=== PATIENT | female | born 1950 | race Caucasian/White ===

== ENCOUNTER 2022-06-26 16:04 | Inpatient (IN) | payer MEDICARE ==
[~2022-06-26 16:04] MED LIST: Iopamidol 370 76% 100 ML VIAL ONE
[2022-06-26 16:43] LABS: #Basophils 0.1 10x3/uL (0.0-0.2); #Eosinphils 0.3 10x3/uL (0.0-0.5); #Monocytes 0.9 10x3/uL (0.0-1.1); #Neutrophils 6.9 10x3/uL (1.5-8.4); %Basophils 0.7 % (0.0-2.0); %Eosinophils 2.3 % (0.0-6.0); %Lymphocytes 25.4 % (18.0-47.0); %Monocytes 8.4 % (0.0-10.0); %Neutrophils 62.8 % (40.0-75.0); Hemoglobin 12.9 g/dL (12.0-15.5); Mean Corpuscular HGB CONC 32.9 g/dL (32.0-36.0); Mean Corpuscular Hemoglobin 31.6 pg (27.0-33.0); Mean Corpuscular Volume 96.1 fl (81.6-98.3); Mean Platelet Volume 9.9 fl (7.4-10.4); Platelet Count 275 10x3/uL (150-450); RBC Distribution Width 14.5 % (11.5-14.5); Red Blood Cell (RBC) Count 4.08 10x6/uL (3.90-5.03); White Blood Cell (WBC) Count 10.9 10x3/uL (3.5-10.5)
[2022-06-26 17:22] LABS: ALT (SGPT) 11 U/L (8-55); AST (SGOT) 14 U/L (5-34); Albumin 3.4 g/dL (3.4-4.8); Alkaline Phosphatase 74 U/L (40-110); Anion Gap 13 mmol/L (10-20); BUN (Urea Nitrogen) 22 mg/dL (9.8-20.1); Bilirubin, Total 0.6 mg/dL (0.2-1.2); CK (CPK) 28 U/L (29-168); Calc. Creatinine Clearance 0 mL/min (70-130); Calcium 9.1 mg/dL (7.8-10.44); Carbon Dioxide 22 mmol/L (23-31); Chloride 108 mmol/L (98-107); Estimated GFR 66; Globulin 3.5 g/dL (2.4-3.5); Glucose 180 mg/dL (83-110); Lipase 68 U/L (8-78); Magnesium 1.8 mg/dL (1.6-2.6); Potassium 4.1 mmol/L (3.5-5.1); Protein, Total 6.9 g/dL (5.8-8.1); Sodium 139 mmol/L (136-145)
[2022-06-26 18:09] LABS: Bilirubin Neg (Negative); Blood, Urine Negative (Negative); Clarity Clear (Clear); Glucose, Urine (Dipstick) 50 mg/dL (Negative); Ketone, Urine Negative (Negative); Leukocyte 500 (Negative); Nitrite Negative (Negative); Protein, Urine (Dipstick) 100 mg/dl (Neg-Trace); Urobilinogen Normal mg/dL (Less than 2)
[2022-06-26] MEDS ORDERED: Furosemide 40 MG/4 ML VIAL ONE (18:11)
[2022-06-26] MEDS ORDERED: Nitroglycerin 0.4 MG TAB 1 EACH ONE (18:19)
[2022-06-26 18:36] LABS: RBC/HPF 0-3 HPF (0-3)
[2022-06-26 18:37] LABS: Bacteria/HPF Rare-Few HPF (None Seen); Squamous Epithelial 0-3 HPF (0-3)
[2022-06-26 19:22] LABS: Actual Bicarbonate (HCO3v) 23.7 mEq/L (22-28); Base Excess -2.4 mEq/L (-2 - +2); Calcium, Ionized (venous) 1.21 mmol/L (1.16-1.32); Chloride (VBG) 103 mmol/L (98-106); Hematocrit-VBG 44 % (36.0-47.0); Hemoglobin (Hb) 14.8 g/dL (11.7-16.1); Potassium (VBG) 4.33 mmol/L (3.70-5.30); Puncture Site Other Site; RapidComm Collect By CBN; Sodium 140.5 mmol/L (133-146); pH (venous) 7.333 (7.32-7.43)
[2022-06-26] MEDS ORDERED: Aspirin Chewable 81 MG TAB ONE (19:35)
[2022-06-26] MEDS ORDERED: Labetalol HCl 100 MG/20 ML VIAL SLOW IVP PRN (21:20)
[2022-06-26] MEDS ORDERED: Gabapentin 300 MG CAP PO SCH (21:30)
[2022-06-26] MEDS ORDERED: Apixaban 5 MG TAB PO SCH (21:30)
[2022-06-26] MEDS ORDERED: Atorvastatin Calcium 20 MG TAB PO SCH (21:30)
[2022-06-26] MEDS ORDERED: Carvedilol 25 MG TAB PO SCH (21:30)
[2022-06-26] MEDS ORDERED: Nitroglycerin 2% Ointment 1 INCH/1 GM Packet TOP SCH (22:00)
[2022-06-26] MEDS: clonazePAM 1 MG TAB PO PRN (22:10)
[2022-06-26 22:11] LABS: Magnesium 1.8 mg/dL (1.6-2.6)
[2022-06-26 22:18] LABS: Troponin I 0.038 ng/mL (< 0.028)
[2022-06-26] MEDS ORDERED: Magnesium Oxide 400 MG TAB PO SCH (23:30)
[2022-06-26] MEDS ORDERED: Potassium Chloride 20 MEQ TAB PO SCH (23:30)
[2022-06-27 01:03] LABS: Troponin I 0.038 ng/mL (< 0.028)
[2022-06-27 04:03] LABS: #Basophils 0.1 10x3/uL (0.0-0.2); #Eosinphils 0.3 10x3/uL (0.0-0.5); #Monocytes 1.1 10x3/uL (0.0-1.1); #Neutrophils 5.8 10x3/uL (1.5-8.4); %Basophils 0.5 % (0.0-2.0); %Eosinophils 2.5 % (0.0-6.0); %Lymphocytes 34.2 % (18.0-47.0); %Monocytes 9.8 % (0.0-10.0); %Neutrophils 52.6 % (40.0-75.0); Hemoglobin 12.6 g/dL (12.0-15.5); Mean Corpuscular HGB CONC 32.9 g/dL (32.0-36.0); Mean Corpuscular Hemoglobin 31.3 pg (27.0-33.0); Mean Platelet Volume 9.7 fl (7.4-10.4); Platelet Count 270 10x3/uL (150-450); RBC Distribution Width 14.4 % (11.5-14.5); Red Blood Cell (RBC) Count 4.03 10x6/uL (3.90-5.03)
[2022-06-27 04:25] LABS: Anion Gap 16 mmol/L (10-20); BUN (Urea Nitrogen) 23 mg/dL (9.8-20.1); Calc. Creatinine Clearance 80 mL/min (70-130); Calcium 9.4 mg/dL (7.8-10.44); Carbon Dioxide 24 mmol/L (23-31); Chloride 103 mmol/L (98-107); Estimated GFR 56; Glucose 177 mg/dL (83-110); Potassium 4.2 mmol/L (3.5-5.1); Sodium 139 mmol/L (136-145)
[2022-06-27] MEDS: Furosemide 40 MG/4 ML VIAL SLOW IVP SCH ×2 (05:55→14:25)
[2022-06-27] MEDS ORDERED: Carvedilol 25 MG TAB PO SCH (08:00)
[2022-06-27] MEDS: Alogliptin 6.25 MG TAB PO SCH (08:22)
[2022-06-27] MEDS: Magnesium Oxide 400 MG TAB PO SCH (08:22)
[2022-06-27] MEDS: Gabapentin 300 MG CAP PO SCH ×2 (08:22→20:07)
[2022-06-27] MEDS: Aspirin 81 mg Enteric Coated Tablet PO SCH ×2 (08:23→09:00)
[2022-06-27] MEDS: Apixaban 5 MG TAB PO SCH ×2 (08:23→20:08)
[2022-06-27] MEDS ORDERED: Polyethylene Glycol 3350 17 GM Packet PO PRN (14:41)
[2022-06-27] MEDS: Carvedilol 6.25 MG TAB PO SCH (17:25)
[2022-06-27] MEDS: Atorvastatin Calcium 20 MG TAB PO SCH (20:07)
[2022-06-27] MEDS ORDERED: Lisinopril 5 MG TAB PO SCH ×2 (21:00)
[2022-06-27] MEDS: clonazePAM 1 MG TAB PO PRN (21:47)
[2022-06-27 21:51] LABS: Uric Acid 7.4 mg/dL (2.6-6.0)
[2022-06-28 04:03] LABS: Anion Gap 14 mmol/L (10-20); BUN (Urea Nitrogen) 34 mg/dL (9.8-20.1); Calc. Creatinine Clearance 64 mL/min (70-130); Calcium 9.3 mg/dL (7.8-10.44); Carbon Dioxide 26 mmol/L (23-31); Chloride 102 mmol/L (98-107); Estimated GFR 42; Glucose 150 mg/dL (83-110); Potassium 4.3 mmol/L (3.5-5.1); Sodium 138 mmol/L (136-145)
[2022-06-28] MEDS: Carvedilol 6.25 MG TAB PO SCH ×2 (08:16→16:56)
[2022-06-28] MEDS: Apixaban 5 MG TAB PO SCH ×2 (08:17→20:03)
[2022-06-28] MEDS: Alogliptin 6.25 MG TAB PO SCH (08:17)
[2022-06-28] MEDS: Magnesium Oxide 400 MG TAB PO SCH (08:17)
[2022-06-28] MEDS: Gabapentin 300 MG CAP PO SCH ×2 (08:17→20:03)
[2022-06-28] MEDS: Furosemide 40 MG TAB PO SCH (08:17)
[2022-06-28] MEDS: Atorvastatin Calcium 20 MG TAB PO SCH (20:03)
[2022-06-28] MEDS ORDERED: Lisinopril 5 MG TAB PO SCH (21:00)
[2022-06-28] MEDS: clonazePAM 1 MG TAB PO PRN (22:14)
[2022-06-29 04:06] LABS: Anion Gap 16 mmol/L (10-20); BUN (Urea Nitrogen) 37 mg/dL (9.8-20.1); Calc. Creatinine Clearance 70 mL/min (70-130); Calcium 9.2 mg/dL (7.8-10.44); Carbon Dioxide 27 mmol/L (23-31); Chloride 99 mmol/L (98-107); Estimated GFR 47; Glucose 168 mg/dL (83-110); Potassium 4.6 mmol/L (3.5-5.1); Sodium 137 mmol/L (136-145)
[2022-06-29] MEDS: Gabapentin 300 MG CAP PO SCH ×2 (08:31→17:23)
[2022-06-29] MEDS: Furosemide 40 MG TAB PO SCH ×2 (08:33→14:21)
[2022-06-29] MEDS: Apixaban 5 MG TAB PO SCH ×2 (08:33→20:02)
[2022-06-29] MEDS: Carvedilol 6.25 MG TAB PO SCH ×2 (08:33→17:24)
[2022-06-29] MEDS: Alogliptin 6.25 MG TAB PO SCH (08:35)
[2022-06-29] MEDS: Magnesium Oxide 400 MG TAB PO SCH (08:45)
[2022-06-29] MEDS ORDERED: Losartan 25 MG TAB PO SCH (09:00)
[2022-06-29] MEDS ORDERED: Dextrose 5% in Water 1,000 ML IV PRN (11:54)
[2022-06-29] MEDS ORDERED: Dextrose 50% Abboject 50 ML SYRINGE SLOW IVP PRN (11:54)
[2022-06-29] MEDS: Atorvastatin Calcium 20 MG TAB PO SCH (20:02)
[2022-06-29] MEDS: clonazePAM 1 MG TAB PO PRN (21:31)
[2022-06-30 04:01] LABS: #Basophils 0.1 10x3/uL (0.0-0.2); #Eosinphils 0.4 10x3/uL (0.0-0.5); #Monocytes 1.3 10x3/uL (0.0-1.1); #Neutrophils 9.6 10x3/uL (1.5-8.4); %Basophils 0.5 % (0.0-2.0); %Eosinophils 2.6 % (0.0-6.0); %Lymphocytes 20.3 % (18.0-47.0); %Monocytes 9.1 % (0.0-10.0); %Neutrophils 67.1 % (40.0-75.0); Hemoglobin 14.1 g/dL (12.0-15.5); Mean Corpuscular HGB CONC 33.4 g/dL (32.0-36.0); Mean Corpuscular Hemoglobin 31.7 pg (27.0-33.0); Mean Corpuscular Volume 94.8 fl (81.6-98.3); Platelet Count 306 10x3/uL (150-450); RBC Distribution Width 14.3 % (11.5-14.5); Red Blood Cell (RBC) Count 4.45 10x6/uL (3.90-5.03); White Blood Cell (WBC) Count 14.3 10x3/uL (3.5-10.5)
[2022-06-30 04:11] LABS: Anion Gap 18 mmol/L (10-20); BUN (Urea Nitrogen) 40 mg/dL (9.8-20.1); Calc. Creatinine Clearance 70 mL/min (70-130); Calcium 9.4 mg/dL (7.8-10.44); Carbon Dioxide 26 mmol/L (23-31); Chloride 98 mmol/L (98-107); Estimated GFR 47; Glucose 177 mg/dL (83-110); Potassium 4.5 mmol/L (3.5-5.1); Sodium 137 mmol/L (136-145)
[2022-06-30] MEDS: Gabapentin 300 MG CAP PO SCH ×2 (10:09→21:12)
[2022-06-30] MEDS: Alogliptin 6.25 MG TAB PO SCH (10:09)
[2022-06-30] MEDS: Magnesium Oxide 400 MG TAB PO SCH (10:10)
[2022-06-30] MEDS: Apixaban 5 MG TAB PO SCH ×2 (10:10→21:12)
[2022-06-30] MEDS: Carvedilol 6.25 MG TAB PO SCH ×2 (10:10→16:44)
[2022-06-30] MEDS: Furosemide 40 MG TAB PO SCH ×2 (10:11→14:55)
[2022-06-30 12:48] LABS: Actual Bicarbonate (HCO3a) 27.5 mEq/L (22-28); Base Excess (BEa) 2.9 mEq/L (-2.0 to +3.0); O2 Tension (PaO2), arterial 59.3 mmHg (> 70.0); Puncture Site LRA; pH, Arterial 7.434 (7.35-7.45)
[2022-06-30] MEDS: Atorvastatin Calcium 20 MG TAB PO SCH (21:12)
[2022-06-30] MEDS: HumaLOG 300 UNITS/3 ML VIAL SC PRN (21:14)
[2022-07-01 03:46] LABS: #Basophils 0.1 10x3/uL (0.0-0.2); #Eosinphils 0.3 10x3/uL (0.0-0.5); #Monocytes 1.3 10x3/uL (0.0-1.1); #Neutrophils 6.2 10x3/uL (1.5-8.4); %Basophils 0.5 % (0.0-2.0); %Eosinophils 2.8 % (0.0-6.0); %Lymphocytes 33.9 % (18.0-47.0); %Neutrophils 51.5 % (40.0-75.0); Hemoglobin 13.8 g/dL (12.0-15.5); Mean Corpuscular HGB CONC 32.9 g/dL (32.0-36.0); Mean Corpuscular Hemoglobin 31.4 pg (27.0-33.0); Mean Corpuscular Volume 95.7 fl (81.6-98.3); Platelet Count 300 10x3/uL (150-450); RBC Distribution Width 14.2 % (11.5-14.5); Red Blood Cell (RBC) Count 4.39 10x6/uL (3.90-5.03)
[2022-07-01 03:48] LABS: Anion Gap 16 mmol/L (10-20); BUN (Urea Nitrogen) 41 mg/dL (9.8-20.1); Calc. Creatinine Clearance 75 mL/min (70-130); Calcium 9.3 mg/dL (7.8-10.44); Carbon Dioxide 27 mmol/L (23-31); Chloride 98 mmol/L (98-107); Estimated GFR 54; Glucose 120 mg/dL (83-110); Potassium 4.2 mmol/L (3.5-5.1); Sodium 137 mmol/L (136-145)
[2022-07-01 05:43] VITALS: BMI 36.6
[2022-07-01] MEDS: HumaLOG 300 UNITS/3 ML VIAL SC PRN ×2 (05:44→19:57)
[2022-07-01] MEDS: Furosemide 40 MG TAB PO SCH ×2 (09:44→14:07)
[2022-07-01] MEDS: Gabapentin 300 MG CAP PO SCH ×2 (09:44→21:38)
[2022-07-01] MEDS: Apixaban 5 MG TAB PO SCH ×2 (09:44→21:38)
[2022-07-01] MEDS: Carvedilol 6.25 MG TAB PO SCH ×2 (09:44→16:36)
[2022-07-01] MEDS: Magnesium Oxide 400 MG TAB PO SCH (09:44)
[2022-07-01] MEDS: Atorvastatin Calcium 20 MG TAB PO SCH (21:38)
[2022-07-02 04:48] LABS: Anion Gap 17 mmol/L (10-20); BUN (Urea Nitrogen) 53 mg/dL (9.8-20.1); Calc. Creatinine Clearance 67 mL/min (70-130); Calcium 9.5 mg/dL (7.8-10.44); Carbon Dioxide 28 mmol/L (23-31); Chloride 96 mmol/L (98-107); Estimated GFR 48; Glucose 149 mg/dL (83-110); Potassium 4.2 mmol/L (3.5-5.1); Sodium 137 mmol/L (136-145)
[2022-07-02 05:06] LABS: #Basophils 0.1 10x3/uL (0.0-0.2); #Eosinphils 0.5 10x3/uL (0.0-0.5); #Monocytes 1.4 10x3/uL (0.0-1.1); #Neutrophils 6.1 10x3/uL (1.5-8.4); %Basophils 0.7 % (0.0-2.0); %Eosinophils 3.7 % (0.0-6.0); %Lymphocytes 34.1 % (18.0-47.0); %Monocytes 11.3 % (0.0-10.0); Hemoglobin 13.3 g/dL (12.0-15.5); Mean Corpuscular HGB CONC 32.8 g/dL (32.0-36.0); Mean Corpuscular Hemoglobin 31.4 pg (27.0-33.0); Mean Platelet Volume 9.8 fl (7.4-10.4); Platelet Count 310 10x3/uL (150-450); RBC Distribution Width 14.2 % (11.5-14.5); Red Blood Cell (RBC) Count 4.23 10x6/uL (3.90-5.03); White Blood Cell (WBC) Count 12.3 10x3/uL (3.5-10.5)
[2022-07-02] MEDS: Gabapentin 300 MG CAP PO SCH ×2 (10:41→20:41)
[2022-07-02] MEDS: Apixaban 5 MG TAB PO SCH ×2 (10:41→20:40)
[2022-07-02] MEDS: Magnesium Oxide 400 MG TAB PO SCH (10:41)
[2022-07-02] MEDS: Carvedilol 6.25 MG TAB PO SCH ×2 (10:42→18:10)
[2022-07-02] MEDS: HumaLOG 300 UNITS/3 ML VIAL SC PRN ×2 (18:11→20:41)
[2022-07-02] MEDS: Atorvastatin Calcium 20 MG TAB PO SCH (20:40)
[2022-07-03 03:24] LABS: #Basophils 0.1 10x3/uL (0.0-0.2); #Eosinphils 0.4 10x3/uL (0.0-0.5); #Monocytes 1.3 10x3/uL (0.0-1.1); #Neutrophils 7.2 10x3/uL (1.5-8.4); %Basophils 0.7 % (0.0-2.0); %Eosinophils 3.3 % (0.0-6.0); %Monocytes 10.3 % (0.0-10.0); %Neutrophils 55.4 % (40.0-75.0); Hemoglobin 13.6 g/dL (12.0-15.5); Mean Corpuscular HGB CONC 32.5 g/dL (32.0-36.0); Mean Corpuscular Hemoglobin 31.3 pg (27.0-33.0); Mean Corpuscular Volume 96.3 fl (81.6-98.3); Mean Platelet Volume 9.8 fl (7.4-10.4); Platelet Count 306 10x3/uL (150-450); RBC Distribution Width 14.1 % (11.5-14.5); Red Blood Cell (RBC) Count 4.34 10x6/uL (3.90-5.03)
[2022-07-03 03:30] LABS: Anion Gap 15 mmol/L (10-20); BUN (Urea Nitrogen) 52 mg/dL (9.8-20.1); Calc. Creatinine Clearance 64 mL/min (70-130); Calcium 9.5 mg/dL (7.8-10.44); Carbon Dioxide 30 mmol/L (23-31); Chloride 98 mmol/L (98-107); Estimated GFR 45; Glucose 155 mg/dL (83-110); Potassium 4.6 mmol/L (3.5-5.1); Sodium 138 mmol/L (136-145)
[2022-07-03] MEDS: Gabapentin 300 MG CAP PO SCH ×2 (08:15→20:31)
[2022-07-03] MEDS: Carvedilol 6.25 MG TAB PO SCH ×2 (08:16→18:00)
[2022-07-03] MEDS: Magnesium Oxide 400 MG TAB PO SCH (08:16)
[2022-07-03] MEDS: Apixaban 5 MG TAB PO SCH ×2 (08:16→20:31)
[2022-07-03] MEDS: Furosemide 40 MG TAB PO SCH (08:16)
[2022-07-03] MEDS ORDERED: clonazePAM 0.5 MG TAB PO PRN (12:05)
[2022-07-03] MEDS: HumaLOG 300 UNITS/3 ML VIAL SC PRN ×2 (12:40→18:01)
[2022-07-03] MEDS: Atorvastatin Calcium 20 MG TAB PO SCH (20:31)
[2022-07-04 04:02] LABS: #Basophils 0.1 10x3/uL (0.0-0.2); #Eosinphils 0.4 10x3/uL (0.0-0.5); #Monocytes 1.4 10x3/uL (0.0-1.1); #Neutrophils 6.1 10x3/uL (1.5-8.4); %Basophils 0.7 % (0.0-2.0); %Eosinophils 3.6 % (0.0-6.0); %Neutrophils 50.5 % (40.0-75.0); Mean Corpuscular HGB CONC 32.7 g/dL (32.0-36.0); Mean Corpuscular Hemoglobin 31.6 pg (27.0-33.0); Mean Corpuscular Volume 96.6 fl (81.6-98.3); Mean Platelet Volume 9.8 fl (7.4-10.4); Platelet Count 311 10x3/uL (150-450); RBC Distribution Width 13.9 % (11.5-14.5); Red Blood Cell (RBC) Count 4.11 10x6/uL (3.90-5.03)
[2022-07-04 04:05] LABS: Anion Gap 13 mmol/L (10-20); BUN (Urea Nitrogen) 52 mg/dL (9.8-20.1); Calc. Creatinine Clearance 74 mL/min (70-130); Calcium 9.3 mg/dL (7.8-10.44); Carbon Dioxide 29 mmol/L (23-31); Chloride 100 mmol/L (98-107); Estimated GFR 53; Glucose 162 mg/dL (83-110); Potassium 4.4 mmol/L (3.5-5.1); Sodium 138 mmol/L (136-145)
[2022-07-04] MEDS: Carvedilol 6.25 MG TAB PO SCH (08:26)
[2022-07-04] MEDS: Furosemide 40 MG TAB PO SCH (08:26)
[2022-07-04] MEDS: Gabapentin 300 MG CAP PO SCH (08:27)
[2022-07-04] MEDS: Magnesium Oxide 400 MG TAB PO SCH (08:27)
[2022-07-04] MEDS: Apixaban 5 MG TAB PO SCH (08:27)
[2022-07-04 12:05] VITALS: BP 122/58; TEMP 97.7
== END 2022-07-04 14:47 | DRG 291 ==
LOC: CSHERS 16:04 → INTOOBSV 21:11 → CSHICU 21:11 → OBSVTOIN 06-28 12:06 → CSHTELE 06-28 21:18 → CSHICU 06-28 22:16 → CSHTELE 06-29 07:53
PROVIDERS: ADMIT Family Medicine; ATTEND Internal Medicine
PROC: 4A033R1 Measurement of Arterial Saturation, Peripheral, Percutaneous Approach (ICD-10-PCS; principal; 2022-06-28)
DX: I11.0 Hypertensive heart disease with heart failure (principal); I50.33 Acute on chronic diastolic (congestive) heart failure; J96.21 Acute and chronic respiratory failure with hypoxia; N17.9 Acute kidney failure, unspecified; I16.1 Hypertensive emergency; I25.10 Atherosclerotic heart disease of native coronary artery without angina pectoris; E11.42 Type 2 diabetes mellitus with diabetic polyneuropathy; E66.9 Obesity, unspecified; Z96.653 Presence of artificial knee joint, bilateral; Z60.2 Problems related to living alone; E11.9 Type 2 diabetes mellitus without complications; Z86.718 Personal history of other venous thrombosis and embolism; Z86.711 Personal history of pulmonary embolism; Z79.01 Long term (current) use of anticoagulants; Z79.899 Other long term (current) drug therapy; Z88.6 Allergy status to analgesic agent; Z88.2 Allergy status to sulfonamides; Z79.84 Long term (current) use of oral hypoglycemic drugs; I25.2 Old myocardial infarction; Z86.73 Personal history of transient ischemic attack (TIA), and cerebral infarction without residual deficits; Z90.710 Acquired absence of both cervix and uterus; Z90.722 Acquired absence of ovaries, bilateral; Z87.891 Personal history of nicotine dependence; Z83.3 Family history of diabetes mellitus; Z80.3 Family history of malignant neoplasm of breast; Z68.36 Body mass index [BMI] 36.0-36.9, adult; Z91.148 Patient's other noncompliance with medication regimen for other reason
CPT/HCPCS: 36415; 36416; 36600; 71045; 71250; 71275; 74177; 80048; 80053; 81003; 81015; 82550; 82805; 83690; 83735; 83880; 84443; 84484; 84550; 85025; 93005; 93010; 93306; 94660; 94760; 94762; 96374; 96376; G0378; J1815; J1940; Q9967

== ENCOUNTER 2023-11-13 10:41 | Outpatient (CLI) | payer MEDICARE ==
[2023-11-13] MEDS ORDERED: Iopamidol 300 61% 100 ML VIAL FS ONE (11:31)
== END 2023-11-13 10:42 | disposition home or self-care (01) ==
LOC: CSHCT 10:41
PROVIDERS: ATTEND Internal Medicine
DX: R91.8 Other nonspecific abnormal finding of lung field (principal); R05.3 Chronic cough; R91.1 Solitary pulmonary nodule
CPT/HCPCS: 36415; 71270; 82565

== ENCOUNTER 2024-09-30 12:40 | Emergency (ER) | payer MEDICARE ==
[2024-09-30 13:43] LABS: Actual Bicarbonate (HCO3a) 23.1 mEq/L (22-28); Analyzer IN Cardio CS ER; Base Excess (BEa) -0.6 mEq/L (-2.0 to +3.0); CO2 Tension 35.6 mmHg (35.0-45.0); Calcium, Ionized (arterial) 1.21 mmol/L (1.12-1.30); Critical Notified By: Udy, RRT; Hematocrit-ABG 46 % (36.0-47.0); Hemoglobin (Hb) 15.5 g/dL (12.0-16.0); O2 Tension (PaO2), arterial 94.1 mmHg (> 70.0); Potassium - ABG Lab 4.26 mmol/L (3.70-5.30); Puncture Site Right Radial artery; RapidComm Collect By Udy, RRT; pH, Arterial 7.430 (7.35-7.45)
[2024-09-30 13:45] LABS: ALV-art Gradient 182.250 mmHg (0-20)
[2024-09-30 14:08] LABS: #Basophils 0.04 10x3/uL (0.0-0.2); #Eosinophils 0.05 10x3/uL (0.0-0.5); #Monocytes 1.01 10x3/uL (0.0-1.1); #Neutrophils 6.14 10x3/uL (1.5-8.4); %Basophils 0.4 % (0.0-2.0); %Eosinophils 0.5 % (0.0-6.0); %Lymphocytes 23.5 % (18.0-47.0); %Monocytes 10.6 % (0.0-10.0); %Neutrophils 64.8 % (40.0-75.0); Hematocrit 45.2 % (34.9-44.5); Hemoglobin 15.0 g/dL (12.0-15.5); Mean Corpuscular Hemoglobin 33.3 pg (27.0-33.0); Mean Corpuscular Volume 100.2 fL (81.6-98.3); Platelet Count 201 10x3/uL (150-450); Red Blood Cell (RBC) Count 4.51 10x6/uL (3.90-5.03); White Blood Cell (WBC) Count 9.49 10x3/uL (3.5-10.5)
[2024-09-30 14:24] LABS: ALT (SGPT) 10 U/L (Less than 34); AST (SGOT) 16 U/L (11-34); Albumin 3.4 g/dL (3.1-4.5); Alkaline Phosphatase 88 U/L (40-110); Anion Gap 13 mmol/L (10-20); BUN (Urea Nitrogen) 31 mg/dL (9.8-20.1); Bilirubin, Total 1.5 mg/dL (0.3-1.2); Calc. Creatinine Clearance 0 mL/min (70-130); Calcium 8.8 mg/dL (7.8-10.44); Carbon Dioxide 25 mmol/L (23-31); Chloride 105 mmol/L (98-107); Globulin 4.4 g/dL (2.4-3.5); Glucose 141 mg/dL (83-110); Magnesium 1.9 mg/dL (1.6-2.6); Potassium 4.5 mmol/L (3.5-5.1); Sodium 138 mmol/L (136-145)
[2024-09-30] MEDS ORDERED: Furosemide 40 MG (4 mL) VIAL ONE (14:25)
[2024-09-30 14:31] LABS: Troponin I 0.045 ng/mL (< 0.028)
== END 2024-09-30 21:03 | disposition short-term general hospital (02) ==
LOC: CSHERS 12:40
DX: I11.0 Hypertensive heart disease with heart failure (principal); I50.9 Heart failure, unspecified; E87.70 Fluid overload, unspecified; I25.10 Atherosclerotic heart disease of native coronary artery without angina pectoris; E11.9 Type 2 diabetes mellitus without complications; I25.2 Old myocardial infarction; Z86.711 Personal history of pulmonary embolism
CPT/HCPCS: 36600; 71045; 71275; 80053; 82805; 83735; 83880; 84484; 85025; 93005; J1940

== ENCOUNTER 2024-11-04 10:56 | Outpatient (CLI) | payer MEDICARE ==
[2024-11-04 11:31] LABS: Hematocrit 44.5 % (34.9-44.5); Hemoglobin 14.5 g/dL (12.0-15.5); Mean Corpuscular Hemoglobin 32.8 pg (27.0-33.0); Mean Corpuscular Volume 100.7 fL (81.6-98.3); Platelet Count 202 10x3/uL (150-450); Red Blood Cell (RBC) Count 4.42 10x6/uL (3.90-5.03); White Blood Cell (WBC) Count 6.51 10x3/uL (3.5-10.5)
[2024-11-04 11:40] LABS: INR-International Normal Ratio 1.0; PTT 25.5 sec (22.0-33.0); Prothrombin Time 10.9 sec (9.5-12.1)
[2024-11-04 11:42] LABS: Anion Gap 16 mmol/L (10-20); BUN (Urea Nitrogen) 32 mg/dL (9.8-20.1); Calc. Creatinine Clearance 0 mL/min (70-130); Calcium 9.2 mg/dL (7.8-10.44); Carbon Dioxide 24 mmol/L (23-31); Chloride 108 mmol/L (98-107); Glucose 77 mg/dL (83-110); Potassium 4.8 mmol/L (3.5-5.1); Sodium 143 mmol/L (136-145)
== END 2024-11-04 10:57 | disposition home or self-care (01) ==
LOC: CSHLAB 10:56
PROVIDERS: ATTEND Internal Medicine Cardiovascular Disease
DX: Z01.812 Encounter for preprocedural laboratory examination (principal); I50.22 Chronic systolic (congestive) heart failure
CPT/HCPCS: 80048; 85027; 85610; 85730